=== PATIENT | male | born 1995 | race Caucasian/White ===

== ENCOUNTER 2017-12-23 18:55 | Emergency (ER) | payer OTHER ==
[~2017-12-23] VITALS: Ht 172.7 cm; Wt 88.5 kg
[2017-12-23 19:01] VITALS: Ht 172.7 cm; Wt 88.5 kg
[2017-12-23 20:20] VITALS: BP 150/101
== END 2017-12-23 20:20 | disposition home or self-care (01) ==
LOC: ED 18:55
DX: J06.9 Acute upper respiratory infection, unspecified (principal)
CPT/HCPCS: J0561; J1100; J1885

== ENCOUNTER 2019-07-16 09:44 | Emergency (ER) | payer OTHER ==
[~2019-07-16] VITALS: Ht 172.7 cm; Wt 96.2 kg
[2019-07-16 10:27] VITALS: Ht 172.7 cm; Wt 96.2 kg
[2019-07-16 14:00] VITALS: BP 143/97
== END 2019-07-16 14:00 | disposition home or self-care (01) ==
LOC: ED 09:44
DX: H61.23 Impacted cerumen, bilateral (principal); H60.92 Unspecified otitis externa, left ear